=== PATIENT | male | born 1945 | race African-American/Black ===

== ENCOUNTER 2021-05-29 05:04 | Day surgery (SDC) | payer MEDICARE, OTHER ==
[2021-05-23 15:30] VITALS: BMI 28.8
[2021-05-29 11:09] VITALS: BP 123/60; PULSE 79; TEMP 98
== END 2021-05-29 11:39 | disposition home or self-care (01) ==
LOC: JASU-ENDO 05:04
PROVIDERS: ATTEND Internal Medicine Gastroenterology
PROC: 0DBL8ZX Excision of Transverse Colon, Via Natural or Artificial Opening Endoscopic, Diagnostic (ICD-10-PCS; principal; 2021-05-29 10:30)
DX: Z12.11 Encounter for screening for malignant neoplasm of colon (principal); D12.3 Benign neoplasm of transverse colon; K57.30 Diverticulosis of large intestine without perforation or abscess without bleeding; K64.8 Other hemorrhoids; K64.4 Residual hemorrhoidal skin tags; K92.1 Melena; Z86.010 Personal history of colon polyps; I10 Essential (primary) hypertension; E11.9 Type 2 diabetes mellitus without complications; E78.5 Hyperlipidemia, unspecified
CPT/HCPCS: 82962